=== PATIENT | female | born 1980 ===

== ENCOUNTER 2021-11-15 09:20 | Emergency (ER) | payer MEDICAID ==
[2021-11-15] MEDS ORDERED: FAMOTIDINE 20 MG TAB PO ONE (12:41)
[2021-11-15] MEDS ORDERED: ONDANSETRON 4 MG ODT TAB PO ONE (12:42)
--- NOTE | 2021-11-15 12:42 | Emergency Department Report ---
ED Abdominal Pain HPI - General Chief Complaint: Abdominal Pain Stated Complaint: ABD PAIN Time Seen by Provider: 11/15/21 12:16 Source: patient Mode of arrival: Ambulatory Limitations: No Limitations - History of Present Illness Initial Comments: 41-year-old female presents to the ER today with complaints of epigastric pain. Patient states that she has been having epigastric pain intermittently for the past 4 days. She described as a burning pain and radiates up into her substernal chest with associated nausea. She states that it seemed to be worse before and after eating food. She states that she had similar symptoms about a month ago and saw her primary care doctor who prescribed her lansoprazole 30 mg which she has been taking twice a day. She states that she has been compliant with taking it every day but does not seem to be helping. She denies any vomiting. She denies any bowel changes. She denies any chest shortness of breath. She denies any UTI symptoms, fever or chills. She has had C-sections in the past but no other abdominal surgeries. MD Complaint: abdominal pain -: days(s) (4) - Related Data Previous Rx's Medication Instructions Recorded Last Taken Type Acetaminophen/Codeine [Tylenol 1 tab PO Q6H PRN #12 tab 11/15/21 Unknown Rx /Codeine # 3 tab] Ondansetron [Zofran Odt] 4 mg PO Q8HR #12 tab.rapdis 11/15/21 Unknown Rx Allergies Allergy/AdvReac Type Severity Reaction Status Date / Time No Known Allergies Allergy Verified 11/15/21 11:20 ED Review of Systems ROS: Stated complaint: ABD PAIN Other details as noted in HPI Comment: All other systems reviewed and negative Constitutional: denies: chills, fever Eyes: denies: eye pain, eye discharge, vision change ENT: denies: ear pain, throat pain Respiratory: denies: cough, shortness of breath, SOB with exertion, SOB at rest, wheezing Cardiovascular: denies: chest pain, palpitations Gastrointestinal: abdominal pain, nausea. denies: diarrhea, constipation, hematemesis, melena, hematochezia Genitourinary: denies: urgency, dysuria, frequency, hematuria, discharge, abnormal menses, dyspareunia Musculoskeletal: denies: back pain, joint swelling, arthralgia, myalgia Skin: denies: rash, lesions, change in color, change in hair/nails, pruritus Neurological: denies: headache, weakness, paresthesias, confusion, abnormal gait, vertigo Psychiatric: denies: anxiety, depression, auditory hallucinations, visual hallucinations, homicidal thoughts, suicidal thoughts Hematological/Lymphatic: denies: easy bleeding, easy bruising, swollen glands ED Past Medical Hx - Past Medical History Previous Medical History?: No - Surgical History Past Surgical History?: No - Medications Home Medications: Home Medications Medication Instructions Recorded Confirmed Last Taken Type Acetaminophen/Codeine [Tylenol 1 tab PO Q6H PRN #12 tab 11/15/21 Unknown Rx /Codeine # 3 tab] Ondansetron [Zofran Odt] 4 mg PO Q8HR #12 tab.rapdis 11/15/21 Unknown Rx ED Physical Exam - General Limitations: No Limitations General appearance: alert, in no apparent distress - Head Head exam: Present: atraumatic, normocephalic, normal inspection - Eye Eye exam: Present: normal appearance, PERRL, EOMI Pupils: Present: normal accommodation - Neck Neck exam: Present: normal inspection, full ROM - Respiratory Respiratory exam: Present: normal lung sounds bilaterally. Absent: respiratory distress, wheezes, rales, rhonchi - Cardiovascular Cardiovascular Exam: Present: regular rate, normal rhythm, normal heart sounds - GI/Abdominal GI/Abdominal exam: Present: soft, tenderness (TTP epigastric ). Absent: distended, guarding, rebound - Extremities Exam Extremities exam: Present: normal inspection, full ROM, normal capillary refill. Absent: pedal edema, calf tenderness - Neurological Exam Neurological exam: Present: alert, oriented X3, CN II-XII intact, normal gait - Psychiatric Psychiatric exam: Present: normal affect, normal mood - Skin Skin exam: Present: intact ED Course Vital Signs 11/15/21 11/15/21 11/15/21 11:20 13:12 13:13 Temperature 98.3 F 98.8 F Pulse Rate 84 77 Respiratory 16 20 Rate Blood Pressure 121/89 Blood Pressure 139/98 [Left] O2 Sat by Pulse 100 99 100 Oximetry 11/15/21 13:15 Temperature 98.5 F Pulse Rate 69 Respiratory 20 Rate Blood Pressure Blood Pressure 111/79 [Left] O2 Sat by Pulse 100 Oximetry ED Medical Decision Making - Lab Data Result diagrams: 11/15/21 14:07 11/15/21 14:07 - Radiology Data Radiology results: report reviewed Patient: GIANNA QUISPE MR#: [id number] : 1980 Acct:[id number] Age/Sex: 41 / F ADM Date: 11/15/21 Loc: ED Attending Dr: Ordering Physician: MADDY MORROW Date of Service: 11/15/21 Procedure(s): US abdomen limited Accession Number(s): [id number] cc: MADDY MORROW Limited abdominal ultrasound INDICATION: Pain FINDINGS: There is slightly prominent measuring 16.2 cm. Multiple gallstones are identified. No gallbladder wall thickening or pericholecystic fluid. Common bile duct measures 2 mm. Aorta and IVC appear normal. Right kidney appears normal. Pancreas is normal where visualized. Calculus seen in the midportion of the right kidney measures 9 x 8 x 15 mm. Nonobstructing. IMPRESSION: 1. Prominent calcification the midportion right kidney measuring 9 x 8 x 15 mm which is nonobstructing. 2. Mild hepatomegaly. 3. Cholelithiasis. Signer Name: Matthew Galeano MD Signed: 11/15/2021 2:11 PM Workstation Name: [id number] Transcribed By: MARVIN Dictated By: ROBERT GALEANO MD Electronically Authenticated By: ROBERT GALEANO MD Signed Date/Time: 11/15/21 1411 DD/ 1410 TD/TT: - Medical Decision Making 1604: All labs reviewed -CBC and CMP unremarkable. Lipase normal. EKG normal and does not suggest STEMI, acute dysrhythmia or significant ischemic changes. Troponin was normal. Gallbladder ultrasound reviewed and that shows that she has multiple gallstones but no evidence of cholecystitis or common bile duct stone. Incidental finding of a large intrarenal stone noted without any signs of obstruction. Patient currently resting comfortably in the recliner. She reports improvement of pain since she has been in the ER. She has not had any vomiting. She does not currently appear toxic, she is not in any significant distress. She is well-appearing. She appears hydrated. Discussed all results with patient. Recommend follow-up with general surgeon for discussion of outpatient removal of her gallbladder. Gallbladder eating plan discussed with patient. Incidental finding of the renal stone was discussed with patient recommend follow-up with her PCP for referral to urology. Patient instructed that if at any point her pain worsens or if she develops fever with her pain she needs to return to the ER immediately. Patient expressed understanding agree with plan. Patient was stable at time of discharge. Critical care attestation.: If time is entered above; I have spent that time in minutes in the direct care of this critically ill patient, excluding procedure time. ED Disposition Clinical Impression: Cholelithiasis, Nephrolithiasis Disposition: HOME / SELF CARE / HOMELESS Is pt being admited?: No Does the pt Need Aspirin: No Condition: Stable Instructions: Cholelithiasis, [id number], Gallbladder Eating Plan, Abdominal Pain (ED) Additional Instructions: Ultrasound today shows that you do have gallstones but no signs of a gallbladder infection. There was also incidental finding of a pretty large intrarenal stone on the right kidney but no signs of obstruction. You will need to follow- up with general surgery for further evaluation of your gallstones. In the meantime I do recommend that you follow the gallbladder the diet eating plan listed on your discharge instructions. Follow-up with your primary care doctor for referral to nephrology for further evaluation of kidney stone but I do recommend follow-up with the general surgeon first at this time since I do suspect that the gallstone is likely the cause of your pain. I do recommend that you continue taking the lansoprazole, you will also be given medication to help with pain and nausea. Return to the ER if at any point you develop fever with worsening pain and uncontrollable vomiting. Prescriptions: Acetaminophen/Codeine [Tylenol /Codeine # 3 tab] 1 tab PO Q6H PRN #12 tab PRN Reason: Pain , Severe (7-10) Ondansetron [Zofran Odt] 4 mg PO Q8HR #12 tab.rapdis Referrals: PRIMARY FRANSICO, [Primary Care Provider] - 3-5 Days KIKI ASHRAF MD [Staff Physician] - 3-5 Days YVONNE BAE MD [Staff Physician] - 3-5 Days Forms: Work/School Release Form(ED) Time of Disposition: 15:30
--- NOTE | 2021-11-15 14:15 | Ultrasound Report ---
Limited abdominal ultrasound INDICATION: Pain FINDINGS: There is slightly prominent measuring 16.2 cm. Multiple gallstones are identified. No gallb ladder wall thickening or pericholecystic fluid. Common bile duct measures 2 mm. Aorta and IVC appear normal. Right kidney appears normal. Pancreas is normal where visualized. Calculus seen in the midpo rtion of the right kidney measures 9 x 8 x 15 mm. Nonobstructing. IMPRESSION: 1. Prominent calcification the midportion right kidney measuring 9 x 8 x 15 mm which is nonobstructin g. 2. Mild hepatomegaly. 3. Cholelithiasis. Signer Name: Matthew Galeano MD Signed: 11/15/2021 2:11 PM Workstation Name: [id number]
[2021-11-15 14:28] LABS: Basophils % (Auto) 0.7 % (0.0-1.8); Eosinophils % (Auto) 0.3 % (0.0-4.3); Hematocrit 41.6 % (30.3-42.9); Hemoglobin 13.3 gm/dl (10.1-14.3); Lymphocytes # (Auto) 1.4 K/mm3 (1.2-5.4); Lymphocytes % (Auto) 27.6 % (13.4-35.0); Mean Corpuscular HGB Conc 32 % (30-34); Mean Corpuscular Volume 86 fl (79-97); Monocytes # (Auto) 0.4 K/mm3 (0.0-0.8); Monocytes % (Auto) 7.9 % (0.0-7.3); Platelet Count 221 K/mm3 (140-440); Red Blood Count 4.81 M/mm3 (3.65-5.03); Red Cell Distribution Width 13.4 % (13.2-15.2)
[2021-11-15 14:41] LABS: Alanine Aminotransferase 32 units/L (7-56); Albumin 4.5 g/dL (3.9-5); Blood Urea Nitrogen 7 mg/dL (7-17); Calcium 9.2 mg/dL (8.4-10.2); Hemolysis Index 6
[2021-11-15 14:49] LABS: BUN/Creatinine Ratio 14
[2021-11-15 16:27] VITALS: BP 112/73
--- NOTE | 2021-11-16 10:55 | Electrocardiograph Report ---
[facility] Test Date: 2021-11-15 Test Time: 15:48:13 Pat Name: GIANNA QUISPE Department: Room: Gender: F [employer] Interviewer: ELDER : 1980 Requested By: MADDY MORROW Order Number: [id number] Reading MD: Armin Carrero Measurements Intervals [place] Rate: 74 P: 64 SD: 157 QRS: 31 QRSD: 100 T: 41 QT: 384 QTc: 426 Interpretive Statements Sinus rhythm Low voltage, extremity leads No previous ECG available for comparison Electronically Signed On 11-16-2021 10:55:31 EST by Armin Carrero
== END 2021-11-15 16:25 | disposition home or self-care (01) ==
LOC: ED 09:20
DX: K80.20 Calculus of gallbladder without cholecystitis without obstruction (principal); N20.0 Calculus of kidney
CPT/HCPCS: 36415; 76705; 80053; 83690; 84484; 85025; 93005; 99284; J3490; Q0162

== ENCOUNTER 2021-12-02 06:55 | Day surgery (SDC) | payer MEDICAID ==
[2021-12-01 10:04] LABS: Basophils # (Auto) 0.1 K/mm3 (0.0-0.1); Basophils % (Auto) 1.2 % (0.0-1.8); Eosinophils # (Auto) 0.1 K/mm3 (0.0-0.4); Eosinophils % (Auto) 1.4 % (0.0-4.3); Hematocrit 40.3 % (30.3-42.9); Hemoglobin 13.1 gm/dl (10.1-14.3); Lymphocytes # (Auto) 1.5 K/mm3 (1.2-5.4); Lymphocytes % (Auto) 28.7 % (13.4-35.0); Mean Corpuscular HGB Conc 33 % (30-34); Mean Corpuscular Volume 86 fl (79-97); Monocytes # (Auto) 0.4 K/mm3 (0.0-0.8); Monocytes % (Auto) 7.5 % (0.0-7.3); Platelet Count 278 K/mm3 (140-440); Red Blood Count 4.71 M/mm3 (3.65-5.03)
[2021-12-01 10:21] LABS: INR 0.97 (0.87-1.13)
[2021-12-01 10:22] LABS: Partial Thromboplastin Time 28.5 Sec. (24.2-36.6)
[2021-12-01 10:47] LABS: Alanine Aminotransferase 11 units/L (7-56); Albumin 4.4 g/dL (3.9-5); Blood Urea Nitrogen 8 mg/dL (7-17); Calcium 9.5 mg/dL (8.4-10.2); Hemolysis Index 7
[2021-12-01 10:55] LABS: BUN/Creatinine Ratio 13; Bilirubin,Direct < 0.2 mg/dL (0-0.2)
[2021-12-02] MEDS ORDERED: LACTATED RINGERS 1,000 ML ONE ×2 (07:16→10:44)
[2021-12-02] MEDS ORDERED: LIDOCAINE (1%) 10 MG/1 ML VIAL 20 ML MDV ONE (07:58)
[2021-12-02] MEDS ORDERED: BUPIVACAINE/PF (0.5%) 5 MG/1 ML 30 ML VIAL INFILTRATI ONE (07:58)
[2021-12-02] MEDS ORDERED: MAGNESIUM OXIDE 400 MG TAB PO ONE (08:09)
[2021-12-02] MEDS ORDERED: ACETAMINOPHEN 500 MG TAB PO NR (08:09)
[2021-12-02] MEDS ORDERED: ONDANSETRON 4 MG/2 ML INJ IV PRN (08:09)
[2021-12-02] MEDS ORDERED: HYDROmorphone 1 MG/1 ML INJ IV PRN ×2 (08:09)
--- NOTE | 2021-12-02 08:10 | Anesthesia Day of Surgery ---
Anesthesia Day of Surgery - Day of Surgery Patient Examined: Yes Patient H&P Reviewed: Yes Patient is NPO: Yes
--- NOTE | 2021-12-02 08:11 | Anesthesia Consultation ---
Anesthesia Consult and Med Hx Date of service: 12/02/21 - Airway Anesthetic Teeth Evaluation: Good ROM Head & Neck: Adequate Mental/Hyoid Distance: Adequate Mallampati Class: Class III Intubation Access Assessment: Probably Good - Pre-Operative Health Status ASA Pre-Surgery Classification: ASA2 Proposed Anesthetic Plan: General - Pulmonary Hx Smoking: Yes (QUIT 10/05) Hx Sleep Apnea: No - Cardiovascular System Hx Hypertension: Yes - Central Nervous System Hx Psychiatric Problems: No - Gastrointestinal Hx Gastroesophageal Reflux Disease: No - Other Systems Hx Cancer: No - Additional Comments Anesthesia Medical History Comments: Son present at BS to interpret
[2021-12-02] MEDS ORDERED: GABAPENTIN 300 MG CAP ONE (08:13)
[2021-12-02] MEDS ORDERED: LACTATED RINGERS 1,000 ML IV SCH (08:30)
[2021-12-02] MEDS ORDERED: ROCURONIUM 50 MG/5 ML INJ IV ONE (08:59)
[2021-12-02] MEDS ORDERED: ONDANSETRON 4 MG/2 ML INJ ONE (08:59)
[2021-12-02] MEDS ORDERED: LIDOCAINE MPF (2%) 20 MG/1 ML VIAL 5 ML ONE (08:59)
[2021-12-02] MEDS ORDERED: HYDROmorphone 1 MG/1 ML INJ ONE (09:00)
[2021-12-02] MEDS ORDERED: ceFAZolin/Water 2 GM/20 ML 2 GM/20 ML SYRINGE IV NR (09:00)
[2021-12-02] MEDS ORDERED: CELECOXIB 200 MG CAP PO NR (09:00)
[2021-12-02] MEDS ORDERED: MIDAZOLAM 2 MG/2 ML INJ IV NR (09:00)
[2021-12-02] MEDS ORDERED: GABAPENTIN 300 MG CAP PO NR (09:00)
[2021-12-02] MEDS ORDERED: propofoL 200 MG/20 ML VIAL IV ONE (09:01)
[2021-12-02] MEDS ORDERED: dexAMETHasone 20 MG/5 ML VIAL ONE (09:39)
[2021-12-02] MEDS ORDERED: SODIUM CHLORIDE 0.9% IRR 1,500 ML BOTTLE IR ONE (09:59)
[2021-12-02] MEDS ORDERED: .SODIUM CHLORIDE 0.9% IRRIG SOLN 3000 ML IR ONE (09:59)
[2021-12-02] MEDS ORDERED: LIDOCAINE (1%) 10 MG/1 ML VIAL 20 ML MDV INFILTRATI ONE (09:59)
[2021-12-02] MEDS ORDERED: BUPIVACAINE/PF (0.5%) 5 MG/1 ML 10 ML VIAL INFILTRATI ONE (10:00)
[2021-12-02] MEDS ORDERED: GLYCOPYRROLATE 0.4 MG/2 ML INJ ONE (10:28)
[2021-12-02] MEDS ORDERED: NEOSTIGMINE 10MG/10 ML INJ MDV ONE (10:28)
--- NOTE | 2021-12-02 10:49 | Operative Report ---
Operative Report Operative Report: Date:12/02/21 Preop diagnosis: cholecystitis with cholelithiasis Postop diagnosis: same Procedure: Laparoscopic cholecystectomy without cholangiogram Surgeon: Dr. Verma [place] Gauger: Anesthesia type: General endotracheal anesthesia Estimated blood loss: 10 cc Specimen: Gallbladder and stone Procedure: Patient is taken to the OR and after timeout are completed the abdomen was prepped with ChloraPrep and draped in a sterile fashion. A 5 mm incision is made in the right Hypogastric area. A 5 mm Visiport is used to gain access to the peritoneal cavity. Abdomen is insufflated with CO2. 2 additional 5 mm ports were placed one in the right lateral subcostal position and one in a subcostal position. In the subxiphoid position a 12 mm port is placed. Gallbladder graspers are used through the right subcostal ports. Adhesions over the top of the liver on the right side are noted. The gallbladder was retracted superiorly anteriorly and laterally. Omental adhesions were dissected off of the gallbladder with the cautery J hook. The peritoneal reflection and adventitia are dissected with a cautery hook to expose the cystic duct and cystic artery as well as the cystic cleft. Critical view of safety is demonstrated. The cystic artery is clipped and divided. A clip was placed on the cystic duct at its junction with the gallbladder. 3 clips were placed on the distal cystic duct. The cystic duct was then divided. The gallbladder was dissected off the gallbladder fossa It was then extracted after being placed in a specimen bag through the subxiphoid port. Hemostasis is good as and is improved with the electrocautery hook. Surgicel gauze is [id number] into the gb fossa. The right upper quadrant irrigated with copious amounts of saline and then aspirated. Sponge and needle counts are noted to be correct at this time. The skin is closed with 4-0 Monocryl and Dermabond. Patient tolerated procedure well.
[2021-12-02 12:08] VITALS: BP 106/63
--- NOTE | 2021-12-02 16:03 | Post Anesthesia Evaluation ---
- Post Anesthesia Evaluation Patient Participated: Yes Airway Patent: Yes Stable Respiratory Function: Yes Nausea/Vomiting: No Temp > 96.8F: Yes Pain Manageable: Yes Adequeate Hydration: Yes Anesthesia Complications: No Block Receding Appropriately: Not Applicable Patient on Ventilator: No
== END 2021-12-02 12:00 | disposition home or self-care (01) ==
LOC: OR 06:55
PROVIDERS: ATTEND Surgery
DX: K80.10 Calculus of gallbladder with chronic cholecystitis without obstruction (principal); I10 Essential (primary) hypertension; Z87.891 Personal history of nicotine dependence; Z79.899 Other long term (current) drug therapy; Z98.890 Other specified postprocedural states; Z20.822 Contact with and (suspected) exposure to COVID-19
CPT/HCPCS: 36415; 47562; 80048; 80076; 84703; 85025; 85610; 85730; 88304; J1100; J1170; J1815; J2405; J2704; J2710; J3490; J7120; U0003